=== PATIENT | male | born 1995 | race Caucasian/White ===

== ENCOUNTER 2018-06-08 18:07 | Emergency (ER) | payer OTHER ==
[~2018-06-08] VITALS: Ht 180.3 cm; Wt 85.7 kg
--- NOTE | 2018-06-08 18:15 | NUR ---
[facility] HOME, FOUND IN THE BATHROOM W/ SEIZURE LIKE ACTIVITY X 1 MIN, PT AWAKE, C/O HEADACHE, NAUSEA, ZOFRAN 4MG IVP GIVEN CHANGE MANAGEMENT FACILITATOR. NO OTHER COMPLAINTS AT THIS TIME, WILL CONTINUE TO MONITOR. SEIZURE PRECAUTION OBSERVED.
[2018-06-08] MEDS ORDERED: LEVETIRACETAM (500MG) 1,000 MG in IV NS 0.9% 100 ML IV SCH (18:30)
[2018-06-08 18:43] LABS: BASOPHILS % (AUTO) 0.4 % (0.0-2.0); EOSINOPHILS % (AUTO) 0.6 % (0.0-6.0); HEMATOCRIT 44 % (39-51); HEMOGLOBIN 14.9 g/dL (13.5-17.5); LYMPHOCYTES # (AUTO) 1.5 /CMM (0.8-4.8); LYMPHOCYTES % (AUTO) 26.4 % (20.0-44.0); MEAN CORPUSCULAR HGB CONC 34 g/dl (31.0-36.0); MEAN CORPUSCULAR VOLUME 88 fL (80-96); MONOCYTES # (AUTO) 0.7 /CMM (0.1-1.30); MONOCYTES % (AUTO) 12.3 % (2.0-12.0); NEUTROPHILS # (AUTO) 3.3 /CMM (1.8-8.9); NEUTROPHILS % (AUTO) 60.3 % (43.0-81.0); PLATELET COUNT (AUTO) 201 /CMM (150-450); RED BLOOD CELL COUNT(AUTO) 4.94 MIL/uL (4.5-6.0); WHITE BLOOD COUNT (AUTO) 5.5 K/uL (4.3-11.0)
[2018-06-08 18:54] LABS: CALCIUM, SERUM 9.2 mg/dL (8.5-10.1); POTASSIUM 4.1 mmol/L (3.5-5.1)
[2018-06-08] MEDS ORDERED: ACETAMINOPHEN 325 MG TABLET ONE (19:05)
--- NOTE | 2018-06-08 19:12 | NUR ---
PATIENT IN NAD, DENIES PAIN OR DISCOMFORT, VSS, NO SEIZURE ACTIVITY NOTED AT THIS TIME. RECEIVED VERBAL ORDER FROM DR. BLUE TO GIVE TYLENOL 650MG X1. REPORT GIVEN TO JEISON FOR CONTINUITY OF CARE.
--- NOTE | 2018-06-08 19:13 | NUR ---
RECEIVED REPORT FROM MIA CORLEY FOR MALENA. PT RESTING COMFORTABLY IN BED. VSS. WILL CONTINUE TO MONITOR
[2018-06-08] MEDS ORDERED: ACETAMINOPHEN 325 MG TABLET PO ONE (19:30)
--- NOTE | 2018-06-08 19:53 | NUR ---
IV removed. Catheter intact and site benign. Pressure and 4x4 applied to site. No bleeding noted. Patient discharged to home in stable condition. Written and verbal after care instructions given. Patient verbalizes understanding of instruction. ambulatory with a steady gait noted. pt aaox4 no acute distress noted, resp even and unlabored. pt family member at bedside to take pt home. advice pt not to drive or operate any machinery due to seizure.
[2018-06-08 19:55] VITALS: BP 110/55
== END 2018-06-08 19:56 | disposition home or self-care (01) ==
LOC: ER 18:08
DX: R56.9 Unspecified convulsions (principal); F12.10 Cannabis abuse, uncomplicated; F10.20 Alcohol dependence, uncomplicated; Y90.9 Presence of alcohol in blood, level not specified
CPT/HCPCS: 36415; 70450; 80048; 85025; 96365; 99284; A4606; J1953; J7030; Z7610

== ENCOUNTER 2018-07-14 04:08 | Emergency (ER) | payer OTHER ==
[~2018-07-14] VITALS: Ht 180.3 cm; Wt 83.9 kg
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
--- NOTE | 2018-07-14 04:30 | NUR ---
MD AT BEDSIDE FOR EVALUATION
--- NOTE | 2018-07-14 04:55 | NUR ---
RADIOLOGY AT BEDSIDE FOR XRAY
[2018-07-14] MEDS ORDERED: PROPOFOL 200 MG/20 ML VIAL IV ONE ×4 (05:00→08:00)
[2018-07-14] MEDS ORDERED: PROPOFOL 20 ML IV ONE (05:03)
[2018-07-14] MEDS ORDERED: IV NS 0.9% 1,000 ML BAG IV ONE (05:30)
[2018-07-14] MEDS ORDERED: LEVETIRACETAM (500MG) 1,000 MG in IV NS 0.9% 100 ML IV SCH (05:30)
--- NOTE | 2018-07-14 05:30 | NUR ---
DR. MURRY, RT, RN, AND EMT AT BEDSIDE FOR RIGHT SHOULDER REDUCTION
[2018-07-14 05:50] LABS: BASOPHILS % (AUTO) 0.1 % (0.0-2.0); EOSINOPHILS % (AUTO) 0.1 % (0.0-6.0); HEMATOCRIT 44 % (39-51); HEMOGLOBIN 14.9 g/dL (13.5-17.5); LYMPHOCYTES # (AUTO) 1.1 /CMM (0.8-4.8); LYMPHOCYTES % (AUTO) 7.8 % (20.0-44.0); MEAN CORPUSCULAR HGB CONC 34 g/dl (31.0-36.0); MEAN CORPUSCULAR VOLUME 87 fL (80-96); MONOCYTES # (AUTO) 0.9 /CMM (0.1-1.30); MONOCYTES % (AUTO) 6.5 % (2.0-12.0); NEUTROPHILS # (AUTO) 12.1 /CMM (1.8-8.9); NEUTROPHILS % (AUTO) 85.5 % (43.0-81.0); PLATELET COUNT (AUTO) 250 /CMM (150-450); WHITE BLOOD COUNT (AUTO) 14.2 K/uL (4.3-11.0)
--- NOTE | 2018-07-14 05:57 | NUR ---
RADIOLOGY AT BEDSIDE FOR SHOULDER XRAY
--- NOTE | 2018-07-14 06:05 | NUR ---
PT AAOX4. DOZING INTERMITTENTLY, EASILY AROUSABLE. RESPIRATIONS EVEN AND UNLABORED. VITAL SIGNS STABLE. PT STILL ON CONTINUOUS MERCHANT SEAMAN. WILL CONTINUE TO MONITOR
[2018-07-14 06:08] LABS: CALCIUM, SERUM 9.2 mg/dL (8.5-10.1); POTASSIUM 3.8 mmol/L (3.5-5.1)
[2018-07-14] MEDS ORDERED: LEVETIRACETAM (500MG) 500 MG/5 ML VIAL IV ONE (06:17)
[2018-07-14] MEDS ORDERED: IBUPROFEN 200 MG TABLET ONE (07:20)
[2018-07-14] MEDS ORDERED: IBUPROFEN 400 MG TABLET ONE (07:21)
[2018-07-14] MEDS ORDERED: IBUPROFEN 600 MG TABLET PO ONE (07:30)
--- NOTE | 2018-07-14 07:30 | NUR ---
GAVE REPORT TO VICKY CORLEY FOR MALENA
[2018-07-14 08:01] VITALS: BP 135/75
--- NOTE | 2018-07-14 08:02 | NUR ---
PT DISCHARGED GIVEN ACI , PRESCRIPTION, AND ORTHOPEDIC REFERRAL PIV REMOVED WITH TIP INTACT WALKED WITH STEADY GAIT ACCOMPANIED BY GIRL FRIEND
== END 2018-07-14 08:01 | disposition home or self-care (01) ==
LOC: ER 04:09
DX: S43.014A Anterior dislocation of right humerus, initial encounter (principal); S42.251A Displaced fracture of greater tuberosity of right humerus, initial encounter for closed fracture; G40.909 Epilepsy, unspecified, not intractable, without status epilepticus; F10.10 Alcohol abuse, uncomplicated; Y90.9 Presence of alcohol in blood, level not specified; Z60.2 Problems related to living alone; X58.XXXA Exposure to other specified factors, initial encounter; Y93.89 Activity, other specified; Y92.89 Other specified places as the place of occurrence of the external cause; Y99.8 Other external cause status
CPT/HCPCS: 23650; 36415; 73030 ×2; 80048; 85025; 96365; 99152; 99285; A4606; J1953 ×2; J2704; J7030 ×3; Z7610; G0500

== ENCOUNTER 2018-10-20 06:37 | Emergency (ER) | payer OTHER ==
[~2018-10-20] VITALS: Ht 180.3 cm; Wt 83.9 kg
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
[2018-10-20] MEDS ORDERED: LORAZEPAM 1 MG TABLET ONE (06:57)
[2018-10-20] MEDS ORDERED: LORAZEPAM 1 MG TABLET PO ONE (07:00)
--- NOTE | 2018-10-20 07:05 | NUR ---
Patient discharged to home in stable condition. Written and verbal after care instructions given. Patient verbalizes understanding of instruction.
[2018-10-20 07:13] VITALS: BP 115/61
[2018-10-20] MEDS ORDERED: LEVE500T20 PO (11:08)
== END 2018-10-20 07:05 | disposition home or self-care (01) ==
LOC: ER 06:41
DX: S01.512A Laceration without foreign body of oral cavity, initial encounter (principal); G40.909 Epilepsy, unspecified, not intractable, without status epilepticus; J02.9 Acute pharyngitis, unspecified; F10.10 Alcohol abuse, uncomplicated; Y90.9 Presence of alcohol in blood, level not specified; Z60.2 Problems related to living alone; X58.XXXA Exposure to other specified factors, initial encounter; Y93.89 Activity, other specified; Y92.89 Other specified places as the place of occurrence of the external cause; Y99.8 Other external cause status

== ENCOUNTER 2018-10-20 10:28 | Emergency (ER) | payer OTHER ==
[~2018-10-20] VITALS: Ht 180.3 cm; Wt 93.9 kg
[2018-10-20] MEDS ORDERED: IV NS 0.9% 1,000 ML BAG IV ONE (10:30)
[2018-10-20] MEDS ORDERED: LORAZEPAM INJ 2 MG/ML VIAL IVP ONE (10:30)
[2018-10-20] MEDS ORDERED: LORAZEPAM INJ 2 MG/ML VIAL ONE (10:33)
--- NOTE | 2018-10-20 10:35 | NUR ---
LAZ RA 886 From home Sz "was in bed with GF and had a seizure was seen and discharged this am around 5. BS 111." Patient a/ox4, placed on the monitor. patient has iv line on left ac g18, patent and flushes well. Seizure precautions observed. O2 on standby, spo2 in room air is 99%. kept comfortable in bed.
[2018-10-20 10:41] LABS: BASOPHILS # (AUTO) 0.1 /CMM (0.0-0.2); BASOPHILS % (AUTO) 0.5 % (0.0-2.0); EOSINOPHILS % (AUTO) 0.4 % (0.0-6.0); HEMATOCRIT 45 % (39-51); HEMOGLOBIN 15.2 g/dL (13.5-17.5); LYMPHOCYTES # (AUTO) 10.2 /CMM (0.8-4.8); LYMPHOCYTES % (AUTO) 63.2 % (20.0-44.0); MEAN CORPUSCULAR HGB CONC 34 g/dl (31.0-36.0); MEAN CORPUSCULAR VOLUME 87 fL (80-96); MONOCYTES # (AUTO) 1.6 /CMM (0.1-1.30); NEUTROPHILS # (AUTO) 4.2 /CMM (1.8-8.9); NEUTROPHILS % (AUTO) 25.9 % (43.0-81.0); PLATELET COUNT (AUTO) 175 /CMM (150-450); WHITE BLOOD COUNT (AUTO) 16.2 K/uL (4.3-11.0)
[2018-10-20 10:47] LABS: CALCIUM, SERUM 8.6 mg/dL (8.5-10.1); CREATININE 1.2 mg/dL (0.6-1.3); POTASSIUM 4.2 mmol/L (3.5-5.1)
[2018-10-20] MEDS ORDERED: LEVE500T20 PO (11:08)
--- NOTE | 2018-10-20 11:15 | NUR ---
PAGED DR. RIVERA [employer] SK[employer] EDUCATOR NEUROLOGIST COVERING DR. HOFFMAN. LEFT A MESSAGE.
[2018-10-20] MEDS ORDERED: LEVETIRACETAM (250 MG) 250 MG TABLET PO ONE ×2 (11:59→12:00)
--- NOTE | 2018-10-20 12:04 | NUR ---
patient taken to ct. a/ox3, just received his keppra.
[2018-10-20 12:13] LABS: BAND % (MANUAL) 2 % (0.0-5.0); LYMPHOCYTES % (MANUAL) 43 % (16-48); NEUTROPHILS % (MANUAL) 36 (42-76); REACTIVE LYMPHOCYTES 6 % (0-0)
[2018-10-20 12:14] LABS: MONOCYTES % (MANUAL) 13 % (0-11.0)
[2018-10-20] MEDS ORDERED: IBUPROFEN 600 MG TABLET PO ONE ×2 (13:30→13:33)
--- NOTE | 2018-10-20 14:33 | NUR ---
Rx provided, PIV removed, Patient a/ox4, breathing even and unlabored, no sob noted. Patient discharged to home in stable condition. Written and verbal after care instructions given. Patient verbalizes understanding of instruction.
[2018-10-20 14:49] VITALS: BP 130/70
== END 2018-10-20 14:30 | disposition home or self-care (01) ==
LOC: ER 10:31
DX: S01.512A Laceration without foreign body of oral cavity, initial encounter (principal); G40.909 Epilepsy, unspecified, not intractable, without status epilepticus; R00.0 Tachycardia, unspecified; F10.10 Alcohol abuse, uncomplicated; Y90.9 Presence of alcohol in blood, level not specified; W18.39XA Other fall on same level, initial encounter; Y93.89 Activity, other specified; Y92.89 Other specified places as the place of occurrence of the external cause; Y99.8 Other external cause status
CPT/HCPCS: 36415; 70450; 80048; 85025; 93005; 96374; 99284; J2060; J7030